=== PATIENT | female | born 1965 | race Caucasian/White ===

== ENCOUNTER 2020-04-18 16:09 | Emergency (ER) | payer OTHER ==
[2020-04-18] MEDS ORDERED: HYDROmorphone 0.5 MG/0.5 ML Syringe IM ONE (16:37)
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
--- NOTE | 2020-04-19 19:49 | CR ---
Left wrist: 4 views left wrist were obtained. Comparison: No prior left wrist exam. Comminuted distal left radial fracture is seen with articular extension and displacement as well as posterior impaction causing dorsal tilt of the distal radial articular margin. Distal ulnar fracture is noted with mild displacement. Soft tissue swelling is noted. No additional fracture or other bony abnormality is appreciated. Impression: 1. Distal left radial fracture as described above. 2. Slightly displaced distal ulnar fracture is also noted. Diagnostic code #3 This report was dictated in MDT
--- NOTE | 2020-04-19 19:49 | CR ---
Right wrist: 4 views of the right wrist were obtained. Comparison: No prior wrist study. Joint spaces are preserved. Nondisplaced distal right radial fracture is noted. No distal ulnar fracture is seen. Carpal bones are within normal limits. No additional abnormality is appreciated. Impression: 1. Nondisplaced distal right radial fracture. Diagnostic code #3 This report was dictated in MDT
== END 2020-04-18 18:33 | disposition home or self-care (01) ==
LOC: JD.ED 16:09
DX: S52.502A Unspecified fracture of the lower end of left radius, initial encounter for closed fracture (principal); S52.602A Unspecified fracture of lower end of left ulna, initial encounter for closed fracture; S52.501A Unspecified fracture of the lower end of right radius, initial encounter for closed fracture; X58.XXXA Exposure to other specified factors, initial encounter; Y93.66 Activity, soccer
CPT/HCPCS: 29125; 73110; 96372; 99283; J1170

== ENCOUNTER 2020-04-23 06:11 | Day surgery (SDC) | payer OTHER ==
[2020-04-23] MEDS ORDERED: Propofol 200 MG/20 ML SDV ONE ×2 (06:46→07:20)
[2020-04-23] MEDS ORDERED: Lidocaine 1% 2 ML ONE ×2 (06:46)
[2020-04-23] MEDS ORDERED: fentaNYL 100 MCG/2 ML SDV ONE ×2 (06:46→07:54)
[2020-04-23] MEDS ORDERED: Lactated Ringers 1,000 ML IV SCH (07:00)
[2020-04-23] MEDS ORDERED: Lidocaine 1%/Sod Bicarbonate in NS 8.4% 1 ML Syringe IDERM PRN (07:00)
[2020-04-23] MEDS ORDERED: Sodium Chloride 0.9% 10 ML Syringe FLUSH PRN (07:00)
[2020-04-23] MEDS ORDERED: Ondansetron 4 MG/2 ML SDV ONE (07:20)
[2020-04-23] MEDS ORDERED: Ketorolac 30 MG/ML SDV ONE (07:20)
[2020-04-23] MEDS ORDERED: ePHEDrine Sulfate/0.9% NaCl/Pf 25 MG/5 ML SYRINGE IV ONE (07:23)
[2020-04-23] MEDS ORDERED: fentaNYL 100 MCG/2 ML SDV IVPUSH PRN (07:54)
[2020-04-23] MEDS ORDERED: Ondansetron 4 MG/2 ML SDV IVPUSH PRN (07:54)
[2020-04-23] MEDS ORDERED: HYDROmorphone 0.5 MG/0.5 ML Syringe IVPUSH PRN (07:54)
--- NOTE | 2020-04-23 08:00 | CR ---
Left wrist: 8 fluoroscopic spot views were obtained of the left wrist utilizing C-arm device. Comparison: Prior wrist study of 04/18/20. Distal radial and ulnar fractures are noted. Study shows reduction of these fractures with placement of fiberglass cast. Final position of the fractures are close to anatomic. Impression: 1. Reduction of previous fractures with placement of fiberglass cast. Diagnostic code #2 This report was dictated in MDT
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
--- NOTE | 2020-04-23 08:44 | PCM.POSTAN ---
POST ANESTHESIA ASSESSMENT - MENTAL STATUS Mental Status: Alert, Oriented - VITAL SIGNS Vital Signs: Last Vital Signs Temp 37.3 C 04/23/20 08:10 Pulse 72 04/23/20 08:10 Resp 8 L 04/23/20 08:10 BP 129/78 04/23/20 08:10 Pulse Ox 98 04/23/20 08:10 - RESPIRATORY Respiratory Status: Respiratory Rate WNL, Airway Patent, O2 Saturation Stable - CARDIOVASCULAR CV Status: Pulse Rate WNL, Blood Pressure Stable - GASTROINTESTINAL GI Status: No Symptoms - PAIN Pain Score: 4 (being treated with IV fentanyl for CRTS) - POST OP HYDRATION Hydration Status: Adequate & Stable - OBSERVATIONS Free Text/Narrative:: Routine transfer to PACU with handoff to RN. VSS, SV, ADLER, FAC, CTAB, /10 pain. Swelling in fingers distal to cast. RN to monitor.
--- NOTE | 2020-04-23 10:49 | PCM48HPAN ---
Post Anesthesia Note - EVALUATION WITHIN 48HRS OF ANESTHETIC Vital Signs in Normal Range: Yes Patient Participated in Evaluation: No Respiratory Function Stable: Yes Airway Patent: Yes Cardiovascular Function Stable: Yes Hydration Status Stable: Yes Pain Control Satisfactory: Yes Nausea and Vomiting Control Satisfactory: Yes Mental Status Recovered: Yes Vital Signs: Last Vital Signs Temp 37.3 C 04/23/20 08:10 Pulse 72 04/23/20 08:10 Resp 8 L 04/23/20 08:10 BP 129/78 04/23/20 08:10 Pulse Ox 98 04/23/20 08:10 - COMMENTS/OBSERVATIONS Free Text/Narrative:: Patient meets criteria for discharge home. No concerns at this time.
--- NOTE | 2020-04-30 13:21 | PCM.OPNOTE ---
- General Post-Op/Procedure Note Date of Surgery/Procedure: 04/23/20 Operative Procedure(s): closed reduction and casting of left distal radius and ulna fracture Pre Op Diagnosis: displaced left distal radius and ulna fracture Post-Op Diagnosis: Same Anesthesia Technique: MAC Primary Surgeon: Lee Zavala Anesthesia Provider: Teofilo Chauhan EBL in mLs: 0 Complications: None Condition: Good
--- NOTE | 2020-04-30 16:07 | OR ---
DATE OF OPERATION: 04/23/2020 SURGEON: Lee Zavala MD OPERATION PERFORMED: Closed reduction and casting of left distal radius and ulna fracture. PREOPERATIVE DIAGNOSIS: Displaced left distal radius and ulna fracture. POSTOPERATIVE DIAGNOSIS: Displaced left distal radius and ulna fracture. ANESTHESIA: MAC sedation. ANESTHESIA PROVIDER: Teofilo Chauhan. POLICEWOMAN: None. ESTIMATED BLOOD LOSS: Not applicable. COMPLICATIONS: None. CONDITION: Stable. DESCRIPTION OF PROCEDURE: The patient was identified in the preop holding area and proper site was marked and identified by the surgeon. The patient was taken back to the operating theater where after adequate anesthesia, the patient's left upper extremity had the splint taken off. An OR time-out was performed. At this time, utilizing C- arm fluoroscopy, the patient was noted to have severely displaced left distal radius and ulnar fracture. At this time, I did do a reduction maneuver, it was found to have a near anatomic alignment so that we could do short-arm casting. Under cast padding was applied, the cast was then applied, and 3-point molding was held. I did utilize C-arm fluoroscopy throughout making sure that the reduction was held. It was adequate alignment. The patient was subsequently sent to the PACU in stable condition. MMODAL /[id number]
== END 2020-04-23 09:52 | disposition home or self-care (01) ==
LOC: JD.SDS 06:11
PROVIDERS: ATTEND Orthopaedic Surgery
DX: S52.502A Unspecified fracture of the lower end of left radius, initial encounter for closed fracture (principal); S52.602A Unspecified fracture of lower end of left ulna, initial encounter for closed fracture; Z01.812 Encounter for preprocedural laboratory examination; Z20.828 Contact with and (suspected) exposure to other viral communicable diseases; W19.XXXA Unspecified fall, initial encounter; Y93.66 Activity, soccer
CPT/HCPCS: 25605; 76000; 87635; 87641; J0171; J1885; J2001; J2405; J2704; J3010; J7120; 01820; U0002

== ENCOUNTER 2023-06-28 09:03 | Emergency (ER) | payer OTHER ==
[2023-06-28] MEDS ORDERED: Sodium Chloride 0.9% 10 ML Syringe FLUSH PRN (09:14)
[2023-06-28] MEDS ORDERED: Aspirin 81 MG Tab.Chew PO ONE (09:14)
[2023-06-28 09:24] LABS: BASOPHILS ABSOLUTE AUTO 0.1 K/mm3 (0.0-0.2); BASOPHILS PERCENT AUTO 1.3 % (0.0-1.0); EOSINOPHILS ABSOLUTE AUTO 0.1 K/mm3 (0.0-0.4); EOSINOPHILS PERCENT AUTO 2.9 % (0.0-6.0); HEMATOCRIT 40.9 % (37.0-47.0); HEMOGLOBIN 13.3 gm/dl (12.0-16.0); LYMPHOCYTES ABSOLUTE AUTO 1.9 K/mm3 (1.0-4.8); MEAN CORPUSCULAR HEMOGLOBIN 30.2 pg (28.0-32.0); MEAN CORPUSCULAR HGB CONC 32.5 g/dl (32.0-36.0); MEAN CORPUSCULAR VOLUME 92.7 fl (83.0-99.0); MEAN PLATELET VOLUME 11.3 fl (9.4-12.3); MONOCYTES ABSOLUTE AUTO 0.3 K/mm3 (0.0-0.8); MONOCYTES PERCENT AUTO 7.3 % (0.0-8.0); NEUTROPHILS ABSOLUTE AUTO 2.1 K/mm3 (1.8-7.7); NEUTROPHILS PERCENT AUTO 46.5 % (41.0-71.0); PLATELET COUNT,PLT 191 K/mm3 (150-400); RED BLOOD CELL COUNT 4.41 M/mm3 (4.10-5.30); WHITE BLOOD CELL COUNT,WBC 4.55 K/mm3 (3.9-11.3)
[2023-06-28 09:54] LABS: A/G RATIO 1.1 (1-2); ALANINE AMINOTRANSFERASE,ALT 23 U/L (14-59); ALBUMIN 4.4 g/dl (3.4-5.0); ALKALINE PHOSPHATASE 52 U/L (46-116); ANION GAP 12.7 (5-15); ASPARTATE AMNIOTRANSFERASE,AST 26 U/L (15-37); BILIRUBIN TOTAL 0.5 mg/dL (0.2-1.0); BLOOD UREA NITROGEN,BUN 13 mg/dL (7-18); BUN/CREATININE RATIO 14.4 (14-18); CALCIUM 9.5 mg/dL (8.5-10.1); CARBON DIOXIDE,CO2 29 mEq/L (21-32); CHLORIDE,CL 101 mEq/L (98-107); CREATININE 0.9 mg/dL (0.55-1.02); EST CRCL DRUG DOSING (CG) 64.64 mL/min; ESTIMATED GFR 73 mL/min (>60); GLUCOSE RANDOM 92 mg/dL (70-99); MAGNESIUM 1.7 mg/dL (1.8-2.4); POTASSIUM,K 3.7 mEq/L (3.5-5.1); PROTEIN TOTAL,TP 8.4 g/dl (6.4-8.2); SODIUM,NA 139 mEq/L (136-145)
[2023-06-28 10:05] LABS: TROPONIN I HIGH SENSITIVITY < 4 pg/mL (<=51)
[2023-06-28 10:35] LABS: APPEARANCE,URINE CLEAR (Clear); BILIRUBIN,URINE NEGATIVE (Negative); COLOR,URINE LIGHT YELLOW (Yellow); GLUCOSE,URINE NEGATIVE (Negative); KETONES,URINE NEGATIVE (Negative); LEUKOCYTE ESTERASE,URINE 1+ (Negative); NITRITE,URINE NEGATIVE (Negative); OCCULT BLOOD,URINE NEGATIVE (Negative); PH,URINE 6.5 (5.0-8.0); PROTEIN,URINE NEGATIVE (Negative); UROBILINOGEN,URINE 0.2 (0.2-1.0)
[2023-06-28 10:52] LABS: BACTERIA,URINE MODERATE /hpf (FEW); RBC,URINE 0-5 /hpf (0-5); RENAL EPITHELIAL CELLS,URINE 0-5 /hpf (0-5); SQUAMOUS EPITHELIAL CELLS,UR NOT SEEN /hpf (0-5); WBC,URINE 0-5 /hpf (0-5)
[2023-06-28 10:53] LABS: MUCUS,URINE NOT SEEN /hpf (FEW)
== END 2023-06-28 11:15 | disposition home or self-care (01) ==
LOC: JD.ED 09:03
DX: R07.89 Other chest pain (principal); Z79.82 Long term (current) use of aspirin
CPT/HCPCS: 36415; 71046; 71046-26; 80053; 81001; 83735; 84484; 85025; 93005; 99285; J3490